=== PATIENT | female | born 2000 | race Hispanic/Latino ===

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

== ENCOUNTER 2023-01-22 04:49 | Emergency (ER) | payer OTHER ==
[2023-01-22 05:57] LABS: SARS-CoV-2 NAA Rapid Test Not Detected (NotDetected)
== END 2023-01-22 04:52 | disposition home or self-care (01) ==
LOC: ERS 04:49
DX: J06.9 Acute upper respiratory infection, unspecified (principal); Z20.822 Contact with and (suspected) exposure to COVID-19
CPT/HCPCS: 99283

== ENCOUNTER 2023-04-14 14:00 | Emergency (ER) | payer OTHER, SELFPAY | END 2023-04-14 15:16 | disposition home or self-care (01) | LOC: ERS 14:00 | DX: L08.9 Local infection of the skin and subcutaneous tissue, unspecified (principal); T78.40XA Allergy, unspecified, initial encounter; R51.9 Headache, unspecified | CPT/HCPCS: 99283 ==